=== PATIENT | female | born 1950 | race Caucasian/White ===

== ENCOUNTER 2016-12-19 05:36 | Day surgery (SDC) | payer MEDICARE, OTHER ==
[~2016-12-19] VITALS: Ht 156.2 cm; Wt 70.1 kg
[2016-12-19] VITALS (9 sets, daily range): BP systolic 90–118; BP diastolic 46–69; PULSE 54–77; RESP 0–18; O2SAT 95–100
[~2016-12-19 05:36] MED LIST: CALCIUM PO; CHOL100045 PO; LACT1CAP67 PO; MAGN400C PO; SYN75 PO; TRAM50TA2 PO; TUMERIC PO
[2016-12-19] MEDS ORDERED: Propofol 10 mg/mL 20 mL Inj ONE (05:37)
[2016-12-19] MEDS ORDERED: MetoCLOpramide 5 mg/mL 2 mL Inj ONE (05:37)
[2016-12-19] MEDS ORDERED: Dexamethasone 4 mg/mL Inj ONE (05:37)
[2016-12-19] MEDS ORDERED: Ondansetron 2 mg/mL 2 mL Inj ONE (05:37)
[2016-12-19] MEDS: Lactated Ringer's 1,000 ML IV SCH ×3 (05:48→07:29)
[2016-12-19] MEDS ORDERED: Lactated Ringer's 1,000 ML IV ONE (06:00)
[2016-12-19] MEDS ORDERED: Lactated Ringer's 1,000 ML IV SCH (07:18)
[2016-12-19] MEDS ORDERED: Lactated Ringer's 500 ML IV PRN (07:18)
[2016-12-19] MEDS ORDERED: Dexamethasone 4 mg/mL Inj IVPUSH PRN (07:20)
[2016-12-19] MEDS ORDERED: fentaNYL-PF 50 mCg/mL 2 mL Inj IVPUSH PRN (07:20)
[2016-12-19] MEDS ORDERED: MetoCLOpramide 5 mg/mL 2 mL Inj IVPUSH PRN (07:20)
[2016-12-19] MEDS ORDERED: Phenylephrine 10,000 mCg/mL Inj IVPUSH PRN (07:20)
[2016-12-19] MEDS ORDERED: Labetalol 5 mg/mL 4 mL Inj IV PRN (07:20)
[2016-12-19] MEDS ORDERED: EPHEDrine Sulfate 50 mg/mL Inj IVPUSH PRN (07:20)
[2016-12-19] MEDS ORDERED: HYDROmorphone 1 mg/mL Inj IVPUSH PRN (07:20)
[2016-12-19] MEDS ORDERED: Ondansetron 2 mg/mL 2 mL Inj IVPUSH PRN (07:20)
--- NOTE | 2016-12-19 07:20 | PCM.HPANE ---
Patient Data Surgeon Admitting Provider: Attending Provider:Jaziel Garza DO Primary Care Physician:Other,Physician Other Provider:Rhea Phillips Anesthesia Reason for Visit Left Torn Medial Meniscus Ht/WT & BMI Height (Feet): 5 Height (Inches): 1.5 Weight (Kilograms): 70.1 Body Mass Index 28.00 Allergies Coded Allergies: codeine (Verified Adverse Reaction, Severe, GI UPSET, 12/17/16) Uncoded Allergies: EGGS (Allergy, Unknown, UNKNOWN, 04/19/15) Past Anesthesia History Anesthesia History: Denies:: Abnormal Airway, Anesthesia Reactions, Difficult Intubation, Malignant Hyperthermia Diabetes History Hx Diabetes?: No MRSA MRSA: No Medications Home Meds Incl Beta Brianne: No Reported Medications Cholecalciferol (Vitamin D3) (Vitamin D)1,000 Unit Capsule5,000 Unit PO DAILY # 1 BOTTLE Ref 0 12/17/16 [Tumeric] No Conflict Check1 Capsule PO DIRECTED PRN JOINT PAIN 12/17/16 Magnesium Oxide (Magnesium)400 Mg [id number] Mg PO DAILY 12/17/16 [Calcium] No Conflict Check1,200 Mg PO BID 12/17/16 Lactobacillus Combination No.4 (Probiotic)1 Each Capsule1 Each PO DAILY 12/17/16 Levothyroxine (Synthroid)75 Mcg [id number] Mcg PO DAILY Ref 0 03/15/15 Discontinued Reported Medications Tramadol 50 Mg [id number] Mg PO TID PRN For Pain Ref 0 12/17/16 Guaifenesin/Codeine Phosphate (Codeine-Guaifen 10-100 mg/5 ml)120 Ml Liquid1 Tsp PO HS PRN PRN 04/19/15 Vit B Comp/C/FA/Iron/Vit E (Vitamin B Complex Tablet)1 Each Tablet1 Each PO DAILY 03/15/15 [biotin] No Conflict Check1 Tab DAILY 03/15/15 [mag citrate] No Conflict Check1 Tab BID 03/15/15 [thryo-care] No Conflict Check1 Tab BID 03/15/15 [Dhea 15] No Conflict Check1 Tab DAILY 03/15/15 [tri-iodine] No Conflict Check1 Tab DAILY 03/15/15 Ascorbic Acid (Vitamin C)1,000 Mg Tab.chew1,000 Mg PO BID Ref 0 03/15/15 [selenium forte] No Conflict Check1 Tab DAILY 03/15/15 [osteoprime forte] No Conflict Check3 Tab PO HS 03/15/15 History History of ENT Problems?: Yes HEENT History: Denies:: Abnormal Airway Cataracts Difficult Intubation Dysphagia Glaucoma Hearing Problem Sinus Problem TMJ Denture Type: None Teeth Condition: Within Normal Limits Other HEENT Pertinent History: S/P TONSILLECTOMY Hx of Heart Problems?: Yes Cardiovascular History: Positive for:: Peripheral Vascular (HX VENOUS INSUFFICIENCY & VARICOSITIES) Denies:: AICD Abdominal Aortic Aneurism Atrial Fibrillation Cardiac Surgery Chest Pain Congestive Heart Failure Coronary Artery Disease Edema Heart Murmur Hypertension Irregular Heartbeat Pacemaker Rheumatic Fever Thrombophlebitis Valvular Heart Disease Other Cardiac History: C/OF BRUISING EASILY Hx of Respiratory Problem?: No Respiratory History: Denies:: Asthma COPD Chest Surgery Cough Dyspnea Emphysema Hemoptysis Oxygen Administration Pneumonia Pulmonary Embolism Tuberculosis Use of C-PAP Machine Use of Inhalers / NEBS Hx Neurologic Problems?: Yes Hx of GI Problems?: Yes Hx of Problems?: No Female Hx: Denies:: Currently Skin History: Denies:: History Skin Disorders? Pressure Ulcers Hx Musculoskeletal Problems?: Yes Musculoskeletal History: Positive for:: Musculoskeletal Trauma (LT TORN MEDIAL MENISCUS=CURRENT PROBLEM) Osteoarthritis (OSTEOPOROSIS) Hx of Psycho/Social Problems?: Yes Psycho Social History: Positive for:: Hx Depression Hx Surgeries?: Yes (HYST,TONSILLECTOMY,THYROIDECTOMY) Hx Any Other Health Problems?: Yes Other History: Positive for:: Cancer (THYROID) Thyroid Disease (S/P THYROIDECTOMY) Denies:: Endocrine Disease Hospitalization History Blood Transfusions: Denies:: Blood Transfusions Hx Diabetes: No Hx Alcohol Use: YesAlcoholic Drinks Per Day: 4 BEERS/MONTHHx Substance Use: No Smoking Status: Never Smoker Have You Smoked inLast 12 mo: No Stop/Bang Treated for Sleep Apnea?: No Do You Have a CPAP Machine?: No S-Snoring: Do You Snore Loudly: No T-Tired: feel tired, fatigued: Yes O-Obsered: Observed not breath: No P-Blood Pressure: treated: No B- Body Mass Index > 35 kg/m2: No A- Age over 50: Yes N- Neck Large Circumference: No G- Gender Male: No CRISTIANA Total Score: 2 CRISTIANA Risk Assessment: Low Risk, <3 Yes Risk Assessment Category Category 1A: Patient has history of documented sleep apnea, and HAS NOT received any narcotic, sedative or anesthesia administration during this stay. Category 1B: Patient has history of documented sleep apnea, and HAS received any narcotic , sedative or anesthesia administration during this stay Category 2: Patient has SUSPECTED Obstructive Sleep Apnea, and HAS received any narcotic , sedative or anesthesia administration during this stay. Category 3: Patient has SUSPECTED Obstructive Sleep Apnea and HAS NOT received narcotic, sedative or anesthesia administration during this stay. Category 4: Outpatient in Procedural Areas with known sleep apnea or who screen positive for High Risk via the STOP/BANG questionnaire. Exam Exam Vital Signs Vital Signs Date Time Temp Pulse Resp B/P Pulse Ox O2 Delivery O2 Flow Rate FiO2 12/19/16 06:06 36.1 60 16 112/69 98 Room Air General Appearance: Oriented X3 HEENT/AIRWAY: MP 2 Lungs: Normal Air Movement Heart: Regular Rate/Rhythm Meds/Labs/Diagnostics Admission Meds Current Medications Lactated Ringer's (Lr) 1,000 ml @ 120 mls/hr Q8H20M IV Last administered on 07:10; Start 12/19/16 at 05:00; Stop 12/19/16 at 13:19 Lidocaine/ Epinephrine (Xylocaine 2%-Epinephrine 1:100,000 Inj) 20 ml STK-MED ONCE NERVEBLOCK Last administered on 12/19/16 07:10; Start 12/19/16 at 07:10; Stop 12/19/16 at 07:15; Status DC Ropivacaine (Naropin 0.5% Inj) 30 ml STK-MED ONCE INFILTRATE Last administered on 12/19/16 07:10; Start 12/19/16 at 07:10; Stop 12/19/16 at 07:15; Status DC Plan Impression Patient chart reviewed, patient interviewed and anesthestic plan with risks, benefits, and alternatives discussed, and informed consent obtained. ASA Physical Status: ASA2 Mod Systemic Disease Anesthetic Plan: GA Bene/Risks/Altern/Consents: Yes HP Complete Prior to Induction: Yes Babatunde Pineda MD Dec 19, 2016 07:20
[2016-12-19] MEDS ORDERED: Lidocaine 2%-Epi 1:100,000 20 mL Inj NERVEBLOCK ONE (07:54)
[2016-12-19] MEDS ORDERED: Ropivacaine-PF 0.5% 30 mL Inj INFILTRATE ONE (07:54)
[2016-12-19] MEDS ORDERED: HYDROcodone-APAP 5-325 mg Tablet PO PRN (08:45)
[2016-12-19] MEDS ORDERED: Ketorolac 15 mg/mL Inj IVPUSH ONE (08:45)
--- NOTE | 2016-12-19 09:01 | PCM.ANEP1 ---
Post Anesthesia PACU Phase 1 Assessment Vital Signs Vital Signs Date Time Temp Pulse Resp B/P Pulse Ox O2 Delivery O2 Flow Rate FiO2 12/19/16 08:45 57 11 94/51 99 Nasal Cannula 3 12/19/16 08:42 64 10 118/62 100 Room Air 12/19/16 08:35 67 13 98/49 100 Simple Mask 10 12/19/16 08:30 64 15 93/46 100 Simple Mask 10 12/19/16 08:25 37 77 15 90/49 100 Simple Mask 10 12/19/16 06:06 36.1 60 16 112/69 98 Room Air Anesthetic Administered: GA Level of Alertness: Awake, talking Pain: No Nausea or Vomiting: No CV Function & Hydration Stable: Yes Airway Device: Lungs: Normal Air Movement PACU Phase 2 Assessment Patient Instructions Provided: N/A Babatunde Pineda MD Dec 19, 2016 09:01
--- NOTE | 2016-12-19 09:01 | OP ---
[address] [address] OPERATIVE REPORT PATIENT: PILAR KENNEDY : 1950 MR#: [id number] ADMIT: 12/19/2016 JOB ID: [id number] DATE OF SURGERY: 12/19/2016 PREOPERATIVE DIAGNOSIS(ES): Left knee torn medial meniscus. POSTOPERATIVE DIAGNOSIS(ES): Left knee torn medial meniscus with left knee medial plica and chondromalacia. PROCEDURE: Left knee video arthroscopy with partial medial meniscectomy and plica resection. SURGEON: Jaziel Garza D.O. ANESTHESIA: General. INDICATIONS: The patient is a 66-year-old female with left knee pain over the medial aspect who continued to have pain with twisting movements and wished to proceed with a knee arthroscopy. We discussed the risks, benefits, and possible complications of surgery including, but not limited to injury to nerves and vessels, infection, bleeding, incomplete relief of symptoms, stiffness, need for additional procedures. The patient had good understanding. All questions were answered and she wished to proceed. PROCEDURE IN DETAIL: The patient was brought to the operating room. She was given a preoperative LMA general anesthetic. The left lower extremity was sterilely prepped and draped. An incision was made over the anterolateral knee at the level of the joint line and the blunt trocar was introduced into the knee. Inspection was undertaken. She was found to have some degenerative tearing of the medial meniscus as well as chondromalacia of the medial femoral condyle and medial tibial plateau with some C2 chondromalacia on the condyles, C2 and C3 on the medial tibial plateau. Her meniscal tear was resected back to a stable base with a combination of biters and shaver. Her ACL was found to be intact. Her lateral compartment was in excellent condition without any meniscal pathology or chondral injury. She was noted to have a fairly significant plica which was resected with a shaver and appeared to be scuffing on the femoral condyle. The scope was then removed and the portals were closed with interrupted nylon suture. Naropin was added as an adjunct local anesthetic. Sterile dressings were applied. The patient tolerated the procedure well. Blood loss was minimal. POSTOPERATIVE PROTOCOL: Have the patient weightbear to tolerance. Use crutches as needed. Ice and elevate and followup in two weeks or sooner if needed. She was given a prescription for Viburnum 5/325 for pain.
== END 2016-12-19 23:59 | disposition home or self-care (01) ==
LOC: SAS 05:36
PROVIDERS: ATTEND Orthopaedic Surgery
PROC: 0SBD4ZZ Excision of Left Knee Joint, Percutaneous Endoscopic Approach (ICD-10-PCS; principal; 2016-12-19 07:15)
DX: M23.304 Other meniscus derangements, unspecified medial meniscus, left knee (principal); E89.0 Postprocedural hypothyroidism; Z85.850 Personal history of malignant neoplasm of thyroid
CPT/HCPCS: 29881; J1100; J1885; J2405; J2765; J2795; J3010; J7120